=== PATIENT | female | born 1950 | race Caucasian/White ===

== ENCOUNTER 2020-09-13 09:04 | Emergency (ER) | payer OTHER ==
[2020-09-13] MEDS ORDERED: TRAMADOL HCL 50 MG TAB ONE (10:46)
[2020-09-13] MEDS ORDERED: IBUPROFEN 400 MG TAB ONE (10:46)
--- NOTE | 2020-09-13 12:31 | RAD REPORT ---
EXAM DESCRIPTION: RAD - Lumbar Spine 3 Views - 09/13/2020 11:44 am CLINICAL HISTORY: low back pain, trip and fall COMPARISON: No comparisons FINDINGS: A three-view lumbar spine examination was performed. Bones are osteopenic. AP alignment is normal. Left convex degenerative scoliotic curvature is present with slight left lateral subluxation of L4. There is minimal height loss along the right lateral asp ect of L4 and L3 related to the scoliosis. An acute compression fracture is not suspected. No patholo gic bone finding seen. Patient has prominent facet degenerative change spanning L3-S1. Degenerative c hanges are most pronounced at the L4-5 level. No disc space narrowing. No pars defects identified. Mild SI joint degenerative change present. Aortoiliac atherosclerotic calcifications are present. IMPRESSION: Osteopenic, degenerative and scoliotic changes are present as detailed. No acute lumbar finding seen.
--- NOTE | 2020-09-13 12:32 | RAD REPORT ---
EXAM DESCRIPTION: RAD - Pelvis - 09/13/2020 11:40 am CLINICAL HISTORY: fall, pelvic pain COMPARISON: No comparisons TECHNIQUE: AP imaging of the pelvis was obtained. FINDINGS: Lumbar degenerative changes are separately detailed. Sacral ala fracture is not suspected. The sacral ala are partially obscured by bowel. SI joint degenerative changes minimal. No fracture of the bony pelvis. No hip joint or proximal femur acute finding. No suspicious soft tissue finding. IMPRESSION: Negative pelvis for acute findings.
--- NOTE | 2020-09-13 12:50 | EDPHYS ---
Physician Documentation [facility] Name: Merry Novoa Age: 70 yrs Sex: Female : 1950 Arrival Date: 09/13/2020 Time: 09:05 Bed 23 Private MD: ED Physician Harvey Wilson HPI: 09/13 11:25 This 70 yrs old Female presents to ER via Ambulatory with complaints of Fall jmm Injury. 11:25 Details of fall: The patient fell from an upright position, while walking. Onset: The jmm symptoms/episode began/occurred acutely. Associated injuries: The patient sustained injury to the low back. The patient has not experienced similar symptoms in the past. This is a 70 year old female with a history of parkinsons, htn, hlp that presents to the ED with complaints of swelling to the left lower back after falling this past Saturday. Denies hitting her head. Denies extremity weakness. . Historical: - Allergies: 09:15 No Known Allergies; tw2 - Home Meds: 09:15 fluoxetine 40 mg Oral cap 1 cap once daily [Active]; losartan-hydrochlorothiazide tw2 100-12.5 mg oral tab 1 tab once daily [Active]; amlodipine 2.5 mg tab 1 tab once daily [Active]; atorvastatin 20 mg oral tab 1 tab once daily [Active]; pantoprazole 40 mg oral TbEC 1 tab once daily [Active]; exemestane 25 mg oral tab 1 tab once daily [Active]; Vitamin D Oral [Active]; Calcium Citrate Oral [Active]; Vitamin B-12 Oral [Active]; 09:17 Carbidopa-Levodopa Oral [Active]; tw2 - PMHx: 09:15 Parkinsons; Hypertension; Hyperlipidemia; tw2 - PSHx: 09:15 Lumpectomy; Left knee sx; tw2 - Immunization history:: Adult Immunizations Client reports receiving the 2nd dose of the Covid vaccine. - Social history:: Smoking status: . ROS: 11:25 Constitutional: Negative for fever, chills, and weight loss, Cardiovascular: Negative jmm for chest pain, palpitations, and edema, Respiratory: Negative for shortness of breath, cough, wheezing, and pleuritic chest pain, Abdomen/GI: Negative for abdominal pain, nausea, vomiting, diarrhea, and constipation. 11:25 Back: Positive for pain with movement. 11:25 All other systems are negative. Exam: 11:25 Constitutional: This is a well developed, well nourished patient who is awake, alert, jmm and in no acute distress. Head/Face: atraumatic. Eyes: EOMI, no conjunctival erythema appreciated ENT: Moist Mucus Membranes Neck: Trachea midline, Supple Chest/axilla: Normal chest wall appearance and motion. Cardiovascular: Regular rate and rhythm. No edema appreciated Respiratory: Normal respirations, no respiratory distress appreciated Abdomen/GI: Non distended, soft 11:25 Respiratory: Normal respirations, no respiratory distress appreciated Skin: General appearance color normal MS/ Extremity: Moves all extremities, no obvious deformities appreciated, no edema noted to the lower extremities 11:25 Back: vertebral tenderness, is not appreciated, ecchymosis, ttp at the left lower lumbar region, no midline tenderness. 11:25 Neuro: Orientation: is normal, Mentation: is normal, Memory: is normal. 11:25 Psych: Behavior/mood is pleasant, cooperative. Vital Signs: 09:09 BP 132 / 82; Pulse 92; Resp 17; Temp 97.9(TE); Pulse Ox 98% on R/A; Weight 79.38 kg tw2 (R); Height 5 ft. 4 in. (162.56 cm); Pain 9/10; 10:25 BP 151 / 76; Pulse 71; Resp 16; Pulse Ox 100% on R/A; vg1 11:00 BP 157 / 62; Pulse 60; Resp 14; Pulse Ox 100% on R/A; vg1 12:00 BP 154 / 73; Pulse 62; Resp 14; Pulse Ox 99% on R/A; vg1 09:09 Body Mass Index 30.04 (79.38 kg, 162.56 cm) tw2 MDM: 10:08 Patient medically screened. lamont 12:47 Data reviewed: vital signs, nurses notes. Counseling: I had a detailed discussion with chester the patient and/or guardian regarding: the historical points, exam findings, and any diagnostic results supporting the discharge/admit diagnosis, radiology results, the need for outpatient follow up, to return to the emergency department if symptoms worsen or persist or if there are any questions or concerns that arise at home. ED course: Imaging studies negative. Patient is advised to follow up with pcp and otherwise given strict return precautions. Patient understood and agrees with the plan of care. . 09/13 10:49 Order name: Lumbar Spine (3 Views) XRAY; Complete Time: 12:32 chester 09/13 10:49 Order name: Pelvis XRAY; Complete Time: 12:44 lanny Administered Medications: 10:33 Drug: UltRAM (traMADol) 50 mg Route: PO; vg1 11:16 Follow up: Response: No adverse reaction; Pain is unchanged, physician notified vg1 10:33 Drug: Ibuprofen 800 mg Route: PO; vg1 11:16 Follow up: Response: No adverse reaction; Pain is unchanged, physician notified vg1 Disposition: 09/14 11:18 Co-signature as Attending Physician, Harvey Wilson MD I agree with the assessment and lamont plan of care. Disposition: 09/13/20 12:49 Discharged to Home. Impression: Contusion of the Left Lower Back. - Condition is Stable. - Discharge Instructions: Back Pain, Adult. - Prescriptions for orphenadrine citrate 100 mg Oral Tablet Sustained Release - take 1 tablet by ORAL route 2 times per day As needed; 20 tablet. - Medication Reconciliation Form, Thank You Letter, Antibiotic Education, Prescription Opioid Use form. - Follow up: Private Physician; When: 2 - 3 days; Reason: Recheck today's complaints, Continuance of care, Re-evaluation by your physician. Signatures: Dispatcher [employer] Harvey Delvalle MD MD cha Mickail, Joel, PA PA jmm Wise, Tara, RN RN tw2 Shona Toth RN RN vg1 Corrections: (The following items were deleted from the chart) 09/13 13:00 12:49 09/13/2020 12:49 Discharged to Home. Impression: Contusion of the Left Lower vg1 Back. Condition is Stable. Forms are Medication Reconciliation Form, Thank You Letter, Antibiotic Education, Prescription Opioid Use. Follow up: Private Physician; When: 2 - 3 days; Reason: Recheck today's complaints, Continuance of care, Re-evaluation by your physician. chester
--- NOTE | 2020-09-13 12:50 | ER ---
Nurse's Notes [facility] Name: Merry Novoa Age: 70 yrs Sex: Female : 1950 Arrival Date: 09/13/2020 Time: 09:05 Bed 23 Private MD: Diagnosis: Contusion of the Left Lower Back Presentation: 09/13 09:09 Chief complaint: Patient states: on Saturday i was coming out of the bathroom and i tw2 tripped and hit the bottom of the metal chair. i hit my LEFT low back. i thought it would getting better but it just hasnt. Coronavirus screen: At this time, the client does not indicate any symptoms associated with coronavirus-19. Ebola Screen: Patient denies travel to an Ebola-affected area in the 21 days before illness onset. Initial Sepsis Screen: Does the patient meet any 2 criteria? HR > 90 bpm. No. Patient's initial sepsis screen is negative. Does the patient have a suspected source of infection? No. Patient's initial sepsis screen is negative. Risk Assessment: Do you want to hurt yourself or someone else? Patient reports no desire to harm self or others. Onset of symptoms was September 13, 2020. 09:09 Method Of Arrival: Ambulatory tw2 09:09 Acuity: KEREN 3 tw2 Triage Assessment: 09:16 General: Appears in no apparent distress. slender, well groomed, Behavior is calm, tw2 cooperative, appropriate for age. Pain: Complains of pain in left low back. Historical: - Allergies: 09:15 No Known Allergies; tw2 - Home Meds: 09:15 fluoxetine 40 mg Oral cap 1 cap once daily [Active]; losartan-hydrochlorothiazide tw2 100-12.5 mg oral tab 1 tab once daily [Active]; amlodipine 2.5 mg tab 1 tab once daily [Active]; atorvastatin 20 mg oral tab 1 tab once daily [Active]; pantoprazole 40 mg oral TbEC 1 tab once daily [Active]; exemestane 25 mg oral tab 1 tab once daily [Active]; Vitamin D Oral [Active]; Calcium Citrate Oral [Active]; Vitamin B-12 Oral [Active]; 09:17 Carbidopa-Levodopa Oral [Active]; tw2 - PMHx: 09:15 Parkinsons; Hypertension; Hyperlipidemia; tw2 - PSHx: 09:15 Lumpectomy; Left knee sx; tw2 - Immunization history:: Adult Immunizations Client reports receiving the 2nd dose of the Covid vaccine. - Social history:: Smoking status: . Screenin:36 Abuse screen: Denies threats or abuse. Nutritional screening: No deficits noted. tw2 Tuberculosis screening: No symptoms or risk factors identified. Fall Risk None identified. Assessment: 10:02 Reassessment: pt given urine specimen cup for sample at this time. tw2 10:22 General: Appears in no apparent distress. uncomfortable, Behavior is calm, cooperative. vg1 Pain: Complains of pain in left low back Pain currently is 9 out of 10 on a pain scale. Quality of pain is described as shooting, Pain began 2-3 days ago. Noted to be grimacing. Neuro: Level of Consciousness is awake, alert, obeys commands, Oriented to person, place, time, situation. Cardiovascular: Patient's skin is warm and dry. Respiratory: Airway is patent Respiratory effort is even, unlabored. GI: No signs and/or symptoms were reported involving the gastrointestinal system. : No signs and/or symptoms were reported regarding the genitourinary system. EENT: No signs and/or symptoms were reported regarding the EENT system. Derm: Bruising that is on left low back. Musculoskeletal: Circulation, motion, and sensation intact. 11:16 Reassessment: Patient appears in no apparent distress at this time. No changes from vg1 previously documented assessment. Patient and/or family updated on plan of care and expected duration. Pain level reassessed. Patient is alert, oriented x 3, equal unlabored respirations, skin warm/dry/pink. 12:18 Reassessment: Patient appears in no apparent distress at this time. No changes from vg1 previously documented assessment. Patient is alert, oriented x 3, equal unlabored respirations, skin warm/dry/pink. 13:00 Reassessment: Patient appears in no apparent distress at this time. Patient and/or vg1 family updated on plan of care and expected duration. Pain level reassessed. Patient is alert, oriented x 3, equal unlabored respirations, skin warm/dry/pink. Vital Signs: 09:09 BP 132 / 82; Pulse 92; Resp 17; Temp 97.9(TE); Pulse Ox 98% on R/A; Weight 79.38 kg tw2 (R); Height 5 ft. 4 in. (162.56 cm); Pain 9/10; 10:25 BP 151 / 76; Pulse 71; Resp 16; Pulse Ox 100% on R/A; vg1 11:00 BP 157 / 62; Pulse 60; Resp 14; Pulse Ox 100% on R/A; vg1 12:00 BP 154 / 73; Pulse 62; Resp 14; Pulse Ox 99% on R/A; vg1 09:09 Body Mass Index 30.04 (79.38 kg, 162.56 cm) tw2 ED Course: 09:05 Patient arrived in ED. ds1 09:11 Triage completed. tw2 09:16 Arm band placed on. tw2 10:01 Dwayne Vargas PA is PHCP. [place] 10:01 Harvey Wilson MD is Attending Physician. [place] 10:03 Bed in low position. Call light in reach. tw2 10:22 Shona Toth, RN is Primary Nurse. vg1 11:39 Lumbar Spine (3 Views) XRAY In Process Unspecified. EDMS 11:39 Pelvis XRAY In Process Unspecified. EDMS 13:00 No provider procedures requiring assistance completed. Patient did not have IV access vg1 during this emergency room visit. Administered Medications: 10:33 Drug: UltRAM (traMADol) 50 mg Route: PO; vg1 11:16 Follow up: Response: No adverse reaction; Pain is unchanged, physician notified vg1 10:33 Drug: Ibuprofen 800 mg Route: PO; vg1 11:16 Follow up: Response: No adverse reaction; Pain is unchanged, physician notified vg1 Outcome: 12:49 Discharge ordered by . [place] 13:00 Discharged to home ambulatory. vg1 13:00 Condition: stable 13:00 Discharge instructions given to patient, Instructed on discharge instructions, follow up and referral plans. medication usage, Demonstrated understanding of instructions, follow-up care, medications, Prescriptions given X 1. 13:00 Patient left the ED. vg1 Signatures: Dispatcher [employer] EDMS Dwayne Vargas PA PA jmm Sanford, Demi ds1 Sol Cardoza RN RN tw2 Shona Toth, RN RN vg1
[2020-09-13 13:19] VITALS: TEMP 97.9
[2020-09-13 13:24] VITALS: BP 154/73; O2SAT 99
== END 2020-09-13 13:00 | disposition home or self-care (01) ==
LOC: ER 09:04
DX: S30.0XXA Contusion of lower back and pelvis, initial encounter (principal); W18.30XA Fall on same level, unspecified, initial encounter; Y93.01 Activity, walking, marching and hiking; I10 Essential (primary) hypertension; G20 Parkinson's disease; E78.5 Hyperlipidemia, unspecified
CPT/HCPCS: 72100; 72170; 99283

== ENCOUNTER 2020-11-08 15:42 | Emergency (ER) | payer OTHER ==
--- NOTE | 2020-11-08 17:32 | RAD REPORT ---
EXAM DESCRIPTION: CT - Head C Spine Mpr Wo Con - 11/08/2020 5:10 pm CLINICAL HISTORY: Head and neck injury status post fall. Head and neck pain COMPARISON: None. TECHNIQUE: Computed axial tomography of the head and cervical spine was obtained. Sagittal and coronal reconstruction was performed. All CT scans are performed using dose optimization technique as appropriate and may include automated exposure control or mA/KV adjustment according to patient size. FINDINGS: Small subarachnoid hematoma bleed right parietal lobe. There probably is a tiny subdural bleed as well The ventricles are normal in caliber. An extra-axial fluid collection is not noted.Fluid within the v isualized sinuses and mastoids is not seen A cervical fracture is not visualized. No dislocation is noted. IMPRESSION: Small subarachnoid bleed right parietal lobe. There probably is a tiny subdural bleed al [place] the right parietal convexity A cervical fracture is not visualized. Milvia Gutierrez of the emergency room was notified 5:25 p.m. November 08, 2020
--- NOTE | 2020-11-08 17:59 | ER ---
Nurse's Notes [facility] Name: Merry Novoa Age: 70 yrs Sex: Female : 1950 Arrival Date: 11/08/2020 Time: 15:46 Bed 15 Private MD: Diagnosis: Traumatic subdural hemorrhage;Traumatic subarachnoid hemorrhage Presentation: 11/08 16:02 Chief complaint: Patient states: Fell backward onto gravel while sitting in a rocking [facility] chair and rocked too far back 5 days ago, reports loss of consciousness for about 4 minutes, reports continued RANGEL to right lutheran/forehead area. Coronavirus screen: Client denies travel out of the [place] in the last 14 days. At this time, the client does not indicate any symptoms associated with coronavirus-19. Ebola Screen: No symptoms or risks identified at this time. Initial Sepsis Screen: Does the patient meet any 2 criteria? No. Patient's initial sepsis screen is negative. Does the patient have a suspected source of infection? No. Patient's initial sepsis screen is negative. Risk Assessment: Do you want to hurt yourself or someone else? Patient reports no desire to harm self or others. Onset of symptoms was November 03, 2020. Care prior to arrival: None. 16:02 Method Of Arrival: Ambulatory [facility] 16:02 Acuity: KEREN 2 jl7 Triage Assessment: 16:30 Headache History: Denies prior headaches. General: Appears in no apparent distress. bp uncomfortable, Behavior is calm, cooperative, appropriate for age. Pain: Complains of pain in left side of the back of head Pain currently is 7 out of 10 on a pain scale. Pain began 5 DAYS AGO Also complains of no other associated symptoms. EENT: No deficits noted. Neuro: Level of Consciousness is awake, alert, obeys commands, Oriented to person, place, time, situation, Appropriate for age Medical Physiologist are equal bilaterally. Cardiovascular: No deficits noted. Respiratory: No deficits noted. GI: No signs and/or symptoms were reported involving the gastrointestinal system. : No signs and/or symptoms were reported regarding the genitourinary system. Derm: No deficits noted. Musculoskeletal: No deficits noted. Historical: - Allergies: 16:05 No Known Allergies; jl7 - PMHx: 16:05 Hyperlipidemia; Hypertension; Parkinsons; breast cancer; jl7 - PSHx: 16:05 Lumpectomy of breast; tubal ligation; jl7 - Immunization history:: Adult Immunizations up to date, Client reports receiving the 2nd dose of the Covid vaccine. - Social history:: Smoking status: Patient denies any tobacco usage or history of. Screenin:30 Abuse screen: Denies threats or abuse. Denies injuries from another. Nutritional bp screening: No deficits noted. Tuberculosis screening: No symptoms or risk factors identified. Fall Risk None identified. Assessment: 16:09 Reassessment: ROZINA Steel gave VO for CT head/c-spine. jl7 16:30 General: SEE TRIAGE NOTE. bp 17:00 Reassessment: No changes from previously documented assessment. Patient and/or family bp updated on plan of care and expected duration. Pain level reassessed. Patient is alert, oriented x 3, equal unlabored respirations, skin warm/dry/pink. 18:00 Reassessment: No changes from previously documented assessment. Patient and/or family bp updated on plan of care and expected duration. Pain level reassessed. Patient is alert, oriented x 3, equal unlabored respirations, skin warm/dry/pink. TRANSFER INITIATED. 18:59 Reassessment: REPORT TO DEA HARRIS FOR [facility] BED 12. bp 19:10 Reassessment: Patient appears in no apparent distress at this time. Patient and/or ad5 family updated on plan of care and expected duration. Pain level reassessed. Patient is alert, oriented x 3, equal unlabored respirations, skin warm/dry/pink. Pt reports headache, denies other c/o at this time. No focal deficits noted at this time. Provider aware, awaiting further orders. Vital Signs: 16:02 BP 153 / 77; Pulse 69; Resp 17; Temp 98.5; Pulse Ox 100% ; Weight 81.65 kg; Pain 8/10; jl7 17:30 BP 158 / 87; Pulse 56; Resp 16; Pulse Ox 98% ; bp 18:30 BP 165 / 92; Pulse 55; Resp 17; Pulse Ox 98% ; bp 19:43 BP 147 / 82; Pulse 57; Resp 16 S; Pulse Ox 98% on R/A; ad5 Bradford Coma Score: 17:33 Eye Response: spontaneous(4). Verbal Response: oriented(5). Motor Response: obeys kb commands(6). Total: 15. 18:04 Eye Response: spontaneous(4). Verbal Response: oriented(5). Motor Response: obeys kb commands(6). Total: 15. ED Course: 15:46 Patient arrived in ED. as 15:56 Triage completed. jl7 16:05 Arm band placed on right wrist. Patient placed in waiting room, Patient notified of jl7 wait time. 16:30 Patient has correct armband on for positive identification. Bed in low position. Call bp light in reach. Side rails up X2. 16:34 [facility]C [facility]. kb 16:34 Olvin Carrizales MD is Attending Physician. kb 16:56 Noel Hernandez, RN is Primary Nurse. bp 17:11 CT Head C Spine In Process Unspecified. EDMS 17:34 initiated transfer to [facility]. bd 18:17 Inserted saline lock: 20 gauge in right forearm, using aseptic technique. Blood bp collected. 18:43 pt accepted in transfer to [facility] by Dr Maxwell admin approval given by hilda Lozano. 19:41 No provider procedures requiring assistance completed. Patient transferred, IV remains ad5 in place. Administered Medications: 18:50 Drug: Keppra (levETIRAcetam) 1000 mg Route: IV; Rate: calculated rate; Site: right bp forearm; 19:35 Follow up: IV Status: Completed infusion ad5 19:20 Drug: morphine 2 mg {Note: RASS 0.} Route: IVP; Site: right forearm; ad5 19:43 Follow up: Response: No adverse reaction; RASS: Alert and Calm (0) ad5 Outcome: 17:59 ER care complete, transfer ordered by . kb 19:42 Transferred ad5 19:42 Transferred to [facility]. 19:42 Condition: stable 19:42 Instructed on the need for transfer, Demonstrated understanding of instructions. 19:43 Patient left the ED. ad5 Signatures: Dispatcher [employer] EDMS Milvia Gutierrez FNP-C FNP-Ckb Dirrim, Barbara bd Martinez, Amelia as Leal, Jahala, RN RN jl7 Noel Hernandez, KIMBERLY RN Patel Shah ad5 Corrections: (The following items were deleted from the chart) 15:57 15:52 Chief complaint: Patient states: Here to have sutures removed from face also c/o [facility] continued pain to right knee and swelling to left ankle and foot [facility] 15:52 Ebola Screen: No symptoms or risks identified at this time. [place] [id number] 15:52 Coronavirus screen: Client denies travel out of the [place] in the last 14 days. At [facility] this time, the client does not indicate any symptoms associated with coronavirus-19. [facility] 15:52 Initial Sepsis Screen: Does the patient meet any 2 criteria? No. Patient's [facility] initial sepsis screen is negative. Does the patient have a suspected source of infection? No. Patient's initial sepsis screen is negative. [facility] 15:52 Risk Assessment: Do you want to hurt yourself or someone else? Patient reports no [facility] desire to harm self or others. [facility] 15:52 Onset of symptoms was November 01, 2020 [place] [address] 15:52 Care prior to arrival: None. [place] [address] 15:52 Method Of Arrival: Ambulatory [place] [address] 15:52 BP 135 / 77; Pulse 85bpm; Resp 17bpm; Pulse Ox 97%; Temp 98.2F; Pain 7/10; [place] [address] 15:52 Acuity: KEREN 4 [place] [address]
--- NOTE | 2020-11-08 17:59 | EDPHYS ---
Physician Documentation [facility] Name: Merry Novoa Age: 70 yrs Sex: Female : 1950 Arrival Date: 11/08/2020 Time: 15:46 Bed 15 Private MD: DORCAS Physician Olvin Carrizales HPI: 11/08 17:35 This 70 yrs old Female presents to ER via Ambulatory with complaints of kb Headache - fall x5 days ago. 18:04 The patient or guardian reports injury, pain. The complaints affect the left side of kb the back of head. Context of injury: The problem was sustained outdoors, resulted from a fall. Onset: The symptoms/episode began/occurred 5 day(s) ago. Associated signs and symptoms: Loss of consciousness: This patient experience a loss of consciousness, for 4 minute(s), Pertinent positives: loss of conciousness, headache. Severity of symptoms: At their worst the symptoms were moderate, in the emergency department the symptoms are unchanged. The patient has not experienced similar symptoms in the past. The patient has not recently seen a physician. Pt reports she was sitting in a rocking chair and it rocked too far back causing her to fall backwards and hit head on trailer. Reports LOC for a few minutes, but she did not want to seek treatment at that time. Came in today because she has had a continuous headache since accident. Historical: - Allergies: 16:05 No Known Allergies; jl7 - PMHx: 16:05 Hyperlipidemia; Hypertension; Parkinsons; breast cancer; jl7 - PSHx: 16:05 Lumpectomy of breast; tubal ligation; jl7 - Immunization history:: Adult Immunizations up to date, Client reports receiving the 2nd dose of the Covid vaccine. - Social history:: Smoking status: Patient denies any tobacco usage or history of. ROS: 17:33 Constitutional: Negative for fever, chills, and weight loss. kb 17:33 Skin: Positive for laceration(s), of the left side of the back of head. 17:33 Neuro: Positive for headache, loss of consciousness, Negative for altered mental status, dizziness, gait disturbance, hearing loss, numbness, seizure activity, speech changes, syncope, near syncope, tingling, tinnitus, tremor, visual changes, weakness. 17:33 All other systems are negative. Exam: 17:33 Constitutional: This is a well developed, well nourished patient who is awake, alert, kb and in no acute distress. Eyes: Pupils equal round and reactive to light, extra-ocular motions intact. Lids and lashes normal. Conjunctiva and sclera are non-icteric and not injected. Cornea within normal limits. Periorbital areas with no swelling, redness, or edema. ENT: Moist Mucous membranes Cardiovascular: Regular rate and rhythm with a normal S1 and S2. No gallops, murmurs, or rubs. No pulse deficits. Respiratory: Respirations even and unlabored. No increased work of breathing, no retractions or nasal flaring. Abdomen/GI: Soft, non-tender. No distention MS/ Extremity: Pulses equal, no cyanosis. Neurovascular intact. Full, normal range of motion. Neuro: Awake and alert, GCS 15, oriented to person, place, time, and situation. Moves all extremities. Normal gait. Psych: Awake, alert, with orientation to person, place and time. Behavior, mood, and affect are within normal limits. 17:33 Skin: injury, laceration(s), the wound is approximately 4 cm(s), of the left side of the back of head, that can be described as clean, no foreign body, linear, without bleeding. Vital Signs: 16:02 BP 153 / 77; Pulse 69; Resp 17; Temp 98.5; Pulse Ox 100% ; Weight 81.65 kg; Pain 8/10; jl7 17:30 BP 158 / 87; Pulse 56; Resp 16; Pulse Ox 98% ; bp 18:30 BP 165 / 92; Pulse 55; Resp 17; Pulse Ox 98% ; bp 19:43 BP 147 / 82; Pulse 57; Resp 16 S; Pulse Ox 98% on R/A; ad5 [place] Com[place] Score: 17:33 Eye Response: spontaneous(4). Verbal Response: oriented(5). Motor Response: obeys kb commands(6). Total: 15. 18:04 Eye Response: spontaneous(4). Verbal Response: oriented(5). Motor Response: obeys kb commands(6). Total: 15. MDM: 16:34 Patient medically screened. kb 17:33 Data reviewed: vital signs, nurses notes. Data interpreted: Pulse oximetry: on room air kb is 100 %. Interpretation: normal. Counseling: I had a detailed discussion with the patient and/or guardian regarding: the historical points, exam findings, and any diagnostic results supporting the discharge/admit diagnosis, radiology results, the need to transfer to another facility, for higher level of care, [facility] does not immediately have the required specialist. 17:58 ED course: Pt accepted for transfer to [facility] neuro icu by dr maxwell. kb 11/08 17:31 Order name: CBC with Diff; Complete Time: 18:41 kb 11/08 17:31 Order name: Basic Metabolic Panel; Complete Time: 18:47 kb 11/08 16:09 Order name: CT Head C Spine; Complete Time: 17:38 jl7 11/08 17:31 Order name: Protime (+inr); Complete Time: 18:47 kb 11/08 17:31 Order name: Ptt, Activated; Complete Time: 18:47 kb 11/08 17:40 Order name: COVID-19 : Document "Date of Symptom Onset" if Symptomatic. kb 11/08 17:31 Order name: IV Start; Complete Time: 18:17 kb Administered Medications: 18:50 Drug: Keppra (levETIRAcetam) 1000 mg Route: IV; Rate: calculated rate; Site: right bp forearm; 19:35 Follow up: IV Status: Completed infusion ad5 19:20 Drug: morphine 2 mg {Note: RASS 0.} Route: IVP; Site: right forearm; ad5 19:43 Follow up: Response: No adverse reaction; RASS: Alert and Calm (0) ad5 Disposition Summary: 11/08/20 17:59 Transfer Ordered Transfer Location: [facility] kb Reason: Higher level of care kb Condition: Stable kb Problem: new kb Symptoms: are unchanged kb Accepting Physician: Dr Maxwell(11/08/20 19:43) ad5 Diagnosis - Traumatic subdural hemorrhage kb - Traumatic subarachnoid hemorrhage kb Forms: - Medication Reconciliation Form kb - SBAR form kb Signatures: Dispatcher [employer] EDMS Milvia Gutierrez, OUSMANE ACP-Stevo Elaine RN RN jl7 Noel Hernandez RN RN Patel Shah ad5 Corrections: (The following items were deleted from the chart) 19:43 17:59 Dr Hans kb ad5
[2020-11-08] MEDS ORDERED: levETIRAcetam 1,000 MG in NA CHLORIDE 0.9% 100 ML IV ONE (18:30)
[2020-11-08 18:35] LABS: Absolute Lymphocytes (CBC) 1.7 K/uL (0.7-4.9); Hematocrit 39.6 % (36.0-45.0); Lymphocytes % 24.7 % (15.3-44.8); MPV 9.8 fL (7.6-11.3); RBC Red Blood Cell Count 4.41 M/uL (3.86-4.86)
[2020-11-08 18:44] LABS: Potassium 3.6 mmol/L (3.5-5.1)
[2020-11-08] MEDS ORDERED: MORPHINE 2 MG/ML SYR ONE (19:35)
[2020-11-08 19:50] VITALS: TEMP 98.5
[2020-11-08 19:52] VITALS: O2SAT 98
[2020-11-08 19:54] VITALS: BP 165/92
== END 2020-11-08 19:43 | disposition short-term general hospital (02) ==
LOC: ER 15:42
DX: S06.5X9A Traumatic subdural hemorrhage with loss of consciousness of unspecified duration, initial encounter (principal); W07.XXXA Fall from chair, initial encounter; Y93.89 Activity, other specified; I10 Essential (primary) hypertension; G20 Parkinson's disease
CPT/HCPCS: 85025; 80048; 36415; 85610; 85730; 70450; 72125; J2270; J1953; 96365; 96375; 99285

== ENCOUNTER 2021-11-15 08:37 | Emergency (ER) | payer OTHER ==
[2021-11-15] MEDS ORDERED: CYCLOBENZAPRINE 10 MG TAB ONE (09:08)
[2021-11-15] MEDS ORDERED: HYDROCODONE/APAP 7.5/325 MG TAB ONE (09:08)
--- NOTE | 2021-11-15 09:43 | RAD REPORT ---
EXAM DESCRIPTION: CT - Head C Spine Mpr Wo Con - 11/15/2021 9:30 am CLINICAL HISTORY: Head and neck injury status post fall. Head and neck pain COMPARISON: 2020 TECHNIQUE: Computed axial tomography of the head and cervical spine was obtained. Sagittal and coronal reconstruction was performed. All CT scans are performed using dose optimization technique as appropriate and may include automated exposure control or mA/KV adjustment according to patient size. FINDINGS: An intracranial bleed is not seen. The ventricles are normal in caliber. An extra-axial fluid collection is not noted.Fluid within the visualized sinuses and mastoids is not seen A cervical fracture is not visualized. No dislocation is noted. Mild anterior subluxation C4 on C5 and mild posterior subluxation C5 on C6 unchanged. Spondylosis IMPRESSION: No acute intracranial abnormality is seen. A cervical fracture is not visualized. If the patient continues to have symptoms to suggest intracra nial /spinal cord pathology then MRI would be recommended
--- NOTE | 2021-11-15 09:44 | RAD REPORT ---
EXAM DESCRIPTION: RAD - Thoracic Spine Ap/Lat - 11/15/2021 9:28 am CLINICAL HISTORY: Back pain FINDINGS: No fracture or dislocation seen. Mild scoliosis. Mild to moderate spondylosis involves thoracic spine. Bones are osteoporotic
--- NOTE | 2021-11-15 09:45 | RAD REPORT ---
EXAM DESCRIPTION: Ribs Right - 11/15/2021 9:28 am CLINICAL HISTORY: Right rib pain FINDINGS: No fracture is seen
--- NOTE | 2021-11-15 09:47 | RAD REPORT ---
EXAM DESCRIPTION: Neri Single View11/15/2021 9:28 am CLINICAL HISTORY: Chest pain COMPARISON: 2014 FINDINGS: The lungs appear clear of acute infiltrate. The heart is normal size IMPRESSION: No acute abnormalities displayed
--- NOTE | 2021-11-15 10:07 | ER ---
Nurse's Notes [facility] Name: Merry Novoa Age: 71 yrs Sex: Female : 1950 Arrival Date: 11/15/2021 Time: 08:38 Bed 7 Private MD: Diagnosis: Contusion of right back wall of thorax Presentation: 11/15 08:49 Chief complaint: Patient states: R upper/mid back pain that began on November 13 after ss falling down 4 steps. Coronavirus screen: Client denies travel out of the [place] in the last 14 days. Ebola Screen: Patient denies exposure to infectious person. Patient denies travel to an Ebola-affected area in the 21 days before illness onset. Initial Sepsis Screen: Does the patient meet any 2 criteria? No. Patient's initial sepsis screen is negative. Does the patient have a suspected source of infection? No. Patient's initial sepsis screen is negative. Risk Assessment: Do you want to hurt yourself or someone else? Patient reports no desire to harm self or others. Onset of symptoms was November 13, 2021. 08:49 Method Of Arrival: Ambulatory ss 08:49 Acuity: KEREN 4 ss Historical: - Allergies: 08:50 No Known Allergies; ss - PMHx: 08:50 breast cancer; Hyperlipidemia; Hypertension; Parkinsons; ss - PSHx: 08:50 tubal ligation; Lumpectomy of breast; ss - Immunization history:: Adult Immunizations unknown. - Social history:: Smoking status: unknown. Screenin:38 Abuse screen: Denies threats or abuse. Nutritional screening: No deficits noted. jd3 Tuberculosis screening: No symptoms or risk factors identified. Fall Risk Fall in past 12 months (25 points). Ambulatory Aid- None/Bed Rest/Nurse Assist (0 pts). Gait- Normal/Bed Rest/Wheelchair (0 pts) Mental Status- Oriented to own ability (0 pts). Total Kim Fall Scale indicates Low Risk Score (25-44 pts). Fall prevention measures have been instituted. Side Rails Up X 2 Placed close to Nursing Station Frequent Obs/Assesments occuring Family Present and informed to notify staff if they need to leave bedside As available Patient and Family Educated on Fall Prevention Program and strategies. Assessment: 09:37 General: Appears in no apparent distress. comfortable, Behavior is calm, cooperative, jd3 appropriate for age. Pain: Complains of pain in right lateral posterior chest and right lateral anterior chest Quality of pain is described as tender. Neuro: [place] Agitation-Sedation Scale (RASS): 0 - Alert and Calm Level of Consciousness is awake, alert, obeys commands, Oriented to person, place, time, situation. Cardiovascular: Capillary refill < 3 seconds Patient's skin is warm and dry. Respiratory: Airway is patent Respiratory effort is even, unlabored, Respiratory pattern is regular, symmetrical. GI: No signs and/or symptoms were reported involving the gastrointestinal system. : No signs and/or symptoms were reported regarding the genitourinary system. EENT: No signs and/or symptoms were reported regarding the EENT system. Derm: No signs and/or symptoms reported regarding the dermatologic system. Musculoskeletal: Circulation, motion, and sensation intact. Range of motion: intact in all extremities. Vital Signs: 08:55 BP 167 / 71; Pulse 55; Resp 17; Temp 97.8(TE); Pulse Ox 99% on R/A; Weight 81.65 kg; ss Height 5 ft. 4 in. (162.56 cm); Pain 10/10; 09:38 BP 153 / 76; Pulse 51; Resp 16 S; Pulse Ox 96% on R/A; jd3 08:55 Body Mass Index 30.90 (81.65 kg, 162.56 cm) ED Course: 08:38 Patient arrived in ED. rg4 08:46 Radha Arriaga FNP [facility]. jh7 08:46 Rolf Beatty MD is Attending Physician. 7 08:46 Louis Lopez RN is Primary Nurse. jd3 08:50 Triage completed. ss 08:50 Arm band placed on right wrist. ss 09:29 XRAY Ribs RIGHT In Process Unspecified. EDMS 09:30 Chest Single View XRAY In Process Unspecified. EDMS 09:30 XRAY Thoracic Spine (Ap/lat) In Process Unspecified. EDMS 09:32 CT Head C Spine In Process Unspecified. EDMS 09:40 Patient has correct armband on for positive identification. Placed in gown. Bed in low jd3 position. Call light in reach. Side rails up X 1. Adult w/ patient. Pulse ox on. NIBP on. 10:38 No provider procedures requiring assistance completed. Patient did not have IV access ss during this emergency room visit. Administered Medications: 09:37 Drug: [place] (HYDROcodone-acetaminophen) (7.5 mg-325 mg) 1 tabs Route: PO; jd3 10:05 Follow up: Response: No adverse reaction; RASS: Alert and Calm (0) jd3 09:37 Drug: Flexeril (cyclobenzaprine) 10 mg Route: PO; jd3 10:05 Follow up: Response: No adverse reaction jd3 10:18 Drug: TORadol (ketorolac) 30 mg Route: IM; Site: right deltoid; jd3 10:39 Follow up: Response: No adverse reaction ss Medication: 09:38 VIS not applicable for this client. jd3 Outcome: 10:07 Discharge ordered by . jh7 10:38 Discharged to home ambulatory, with significant other. ss 10:38 Condition: good 10:38 Discharge instructions given to patient, significant other, Instructed on discharge instructions, follow up and referral plans. medication usage, Demonstrated understanding of instructions, follow-up care, medications, Prescriptions given X 3. 10:39 Patient left the ED. ss Signatures: Dispatcher [employer] EDMS Iveth Beck RN RN ss Garcia, Rubi rg4 Davies, Jonathon, RN RN Radha De Oliveira FNP FNP jh7 Corrections: (The following items were deleted from the chart) 09:40 09:38 Pulse 51bpm; Resp 16bpm; Spontaneous; Pulse Ox 96% RA; jd3 jd3
--- NOTE | 2021-11-15 10:07 | EDPHYS ---
Physician Documentation [facility] Name: Merry Novoa Age: 71 yrs Sex: Female : 1950 Arrival Date: 11/15/2021 Time: 08:38 Bed 7 Private MD: ED Physician Rolf Beatty HPI: 11/15 08:55 This 71 yrs old Female presents to ER via Ambulatory with complaints of Fall Injury, jh7 Back Pain. 08:55 Details of fall: The patient fell from an upright position, while walking. Onset: The jh7 symptoms/episode began/occurred 2 day(s) ago. Patient reports that she got up in the night to go to the bathroom, tripped, and fell hitting her head and back. Reports possible loss of consciousness. Reports right-sided mid back pain. Denies dizziness, headache, chest pain, shortness of breath, or any neuro symptoms.. Historical: - Allergies: 08:50 No Known Allergies; ss - PMHx: 08:50 breast cancer; Hyperlipidemia; Hypertension; Parkinsons; ss - PSHx: 08:50 tubal ligation; Lumpectomy of breast; ss - Immunization history:: Adult Immunizations unknown. - Social history:: Smoking status: unknown. ROS: 08:55 Constitutional: Negative for fever, chills, and weight loss, Eyes: Negative for injury, jh7 pain, redness, and discharge, ENT: Negative for injury, pain, and discharge, Neck: Negative for injury, pain, and swelling, Cardiovascular: Negative for chest pain, palpitations, and edema, Respiratory: Negative for shortness of breath, cough, wheezing, and pleuritic chest pain, Abdomen/GI: Negative for abdominal pain, nausea, vomiting, diarrhea, and constipation, Skin: Negative for injury, rash, and discoloration, Neuro: Negative for headache, weakness, numbness, tingling, and seizure. 08:55 Back: Positive for pain at rest, pain with movement, Negative for decreased range of motion. 08:55 MS/extremity: Exam: 08:55 Constitutional: This is a well developed, well nourished patient who is awake, alert, jh7 and in no acute distress. ENT: Nares patent. No nasal discharge, no septal abnormalities noted. Tympanic membranes are normal and external auditory canals are clear. Oropharynx with no redness, swelling, or masses, exudates, or evidence of obstruction, uvula midline. Mucous membranes moist. Neck: Trachea midline, no thyromegaly or masses palpated, and no cervical lymphadenopathy. Supple, full range of motion without nuchal rigidity, or vertebral point tenderness. No Meningismus. Cardiovascular: Regular rate and rhythm with a normal S1 and S2. No gallops, murmurs, or rubs. Normal PMI, no JVD. No pulse deficits. Respiratory: Lungs have equal breath sounds bilaterally, clear to auscultation and percussion. No rales, rhonchi or wheezes noted. No increased work of breathing, no retractions or nasal flaring. Abdomen/GI: Soft, non-tender, with normal bowel sounds. No distension or tympany. No guarding or rebound. No evidence of tenderness throughout. Skin: Warm, dry with normal turgor. Normal color with no rashes, no lesions, and no evidence of cellulitis. MS/ Extremity: Pulses equal, no cyanosis. Neurovascular intact. Full, normal range of motion. Neuro: Awake and alert, GCS 15, oriented to person, place, time, and situation. Cranial nerves II-XII grossly intact. Motor strength 5/5 in all extremities. Sensory grossly intact. Cerebellar exam normal. Normal gait. 08:55 Back: pain, that is moderate, of the right subscapular area and right mid back, ROM is normal, CVA tenderness, is absent. Vital Signs: 08:55 BP 167 / 71; Pulse 55; Resp 17; Temp 97.8(TE); Pulse Ox 99% on R/A; Weight 81.65 kg; ss Height 5 ft. 4 in. (162.56 cm); Pain 10/10; 09:38 BP 153 / 76; Pulse 51; Resp 16 S; Pulse Ox 96% on R/A; jd3 08:55 Body Mass Index 30.90 (81.65 kg, 162.56 cm) MDM: 08:46 Patient medically screened. [facility] 11/15 08:53 Order name: XRAY Ribs RIGHT; Complete Time: 10:03 [facility] 11/15 08:53 Order name: Chest Single View XRAY; Complete Time: 10:03 [facility] 11/15 08:53 Order name: XRAY Thoracic Spine (Ap/lat); Complete Time: 10:03 7 11/15 08:53 Order name: CT Head C Spine; Complete Time: 10:03 [facility] Administered Medications: 09:37 Drug: [place] (HYDROcodone-acetaminophen) (7.5 mg-325 mg) 1 tabs Route: PO; jd3 10:05 Follow up: Response: No adverse reaction; RASS: Alert and Calm (0) jd3 09:37 Drug: Flexeril (cyclobenzaprine) 10 mg Route: PO; jd3 10:05 Follow up: Response: No adverse reaction jd3 10:18 Drug: TORadol (ketorolac) 30 mg Route: IM; Site: right deltoid; jd3 10:39 Follow up: Response: No adverse reaction ss Disposition Summary: 11/15/21 10:07 Discharge Ordered Location: Home [facility] Problem: new [facility] Symptoms: have improved [facility] Condition: Stable [facility] Diagnosis - Contusion of right back wall of thorax [facility] Followup: [facility] - With: Private Physician - When: 2 - 3 days - Reason: Recheck today's complaints Discharge Instructions: - Discharge Summary Sheet [facility] - Acute Back Pain, Adult [facility] - Back Exercises [facility] Forms: - Medication Reconciliation Form [facility] - Thank You Letter [facility] - Prescription Opioid Use [facility] Prescriptions: - Naprosyn 500 mg Oral Tablet - take 1 tablet by ORAL route 2 times per day take with food; 30 tablet; Refills: [facility] 0, Product Selection Permitted - Zanaflex 4 mg Oral Tablet - take 1 tablet by ORAL route every 8 hours As needed; 20 tablet; Refills: 0, [facility] Product Selection Permitted - Tramadol 50 mg Oral Tablet - take 1 tablet by ORAL route every 8 hours as needed; 12 tablet; Refills: 0, [facility] Product Selection Permitted Signatures: Dispatcher [employer] Iveth Mcgowan RN RN ss Davies, Jonathon, RN RN Radha De Oliveira FNP FNP [facility]
[2021-11-15] MEDS ORDERED: KETOROLAC 30 MG/ML INJ ONE ×2 (10:16→10:22)
[2021-11-15 10:51] VITALS: TEMP 97.8
[2021-11-15 10:53] VITALS: BP 153/76; O2SAT 96
== END 2021-11-15 10:39 | disposition home or self-care (01) ==
LOC: ER 08:37
DX: S20.221A Contusion of right back wall of thorax, initial encounter (principal); G20 Parkinson's disease; I10 Essential (primary) hypertension; Z85.3 Personal history of malignant neoplasm of breast
CPT/HCPCS: 70450; 71045; 72070; 72125